=== PATIENT | female | born 1990 | race African-American/Black ===

== ENCOUNTER 2023-06-19 10:52 | Emergency (ER) | payer OTHER ==
[~2023-06-19] VITALS: Ht 148.6 cm; Wt 69.4 kg
[2023-06-19 11:00] VITALS: BP 126/79; TEMP 98.4
[2023-06-19 11:37] LABS: PLATELET COUNT 271 K/uL (152-353)
[2023-06-19 11:46] LABS: POTASSIUM 3.7 mmol/L (3.6-5.2)
== END 2023-06-19 14:05 | disposition home or self-care (01) ==
LOC: ED 10:52
PROVIDERS: Family Medicine
DX: R10.9 Unspecified abdominal pain (principal); B34.9 Viral infection, unspecified
CPT/HCPCS: 80053; 81002; 81025; 83690; 85027; 87651; 99283; Q9963